=== PATIENT | female | born 1950 | race Caucasian/White ===

== ENCOUNTER 2020-12-06 10:44 | Emergency (ER) | payer MEDICARE, BC, SELFPAY ==
[2020-12-06 10:09] VITALS: BP 161/66; PULSE 74; RESP 15; TEMP 36.8; O2SAT 96; BMI 33.9
--- NOTE | 2020-12-06 10:51 | DI.CT.S_ITS ---
PROCEDURE: CT KIDNEY URETER BLADDER (KUB) INDICATIONS: left flank pain TECHNIQUE: Noncontrast 5 mm thick sections acquired from the diaphragms to the symphysis. 5 mm thick coronal and sagittal reformats were then performed. For radiation dose reduction, the following was used: automated exposure control, adjustment of mA and/or kV according to patient size. COMPARISON: None. FINDINGS: Image quality: Excellent. Lung bases: Lung bases are clear. Heart size is normal. Urinary system: Both kidneys are normal in size. No kidney stones. There is minimal right and mild left perinephric fat stranding. No right hydronephrosis. Mild left hydronephrosis. Small amount of fluid within the left anterior para renal space. Both ureters appear non-dilated throughout their expected courses. Bladder wall thickness is normal. 2 mm calculus within the left posterior urinary bladder. Other solid organs: Liver is normal in size. Gallbladder is surgically absent . Pancreas is normal in contours. Spleen is normal in size. No adrenal nodules. Peritoneum and bowel: Small hiatal hernia. Unenhanced bowel loops demonstrate normal wall thickness and caliber. No free fluid or air. Normal appendix. Nodes and vessels: No retroperitoneal or mesenteric adenopathy by size criteria. Aorta and inferior vena cava are normal in caliber. Abdominal wall: There is an infraumbilical hernia containing a loop of small bowel as well as mesenteric fat, measuring roughly 75 mm. There is mild fat stranding within this hernia. Rectus muscle diastasis. Pelvis: No free pelvic fluid. No inguinal hernias or adenopathy. Bones: No suspicious bony lesions. No vertebral body compression fractures. IMPRESSION: 1. 2 mm urinary bladder calculus, which appears to of recently passed from the left renal collecting system. No nephrolithiasis. Mild residual left hydronephrosis. 2. Bowel and fat containing anterior pelvic wall hernia which demonstrates fat stranding, which may indicate incarceration. Surgical consultation recommended. 3. Normal appendix. 4. Small hiatal hernia. Dictated by: Estela Williamson M.D. on 12/06/2020 at 12:08 Approved by: Estela Williamson M.D. on 12/06/2020 at 12:11
--- NOTE | 2020-12-06 11:11 | ED.ABDPAIN ---
HPI - Abdominal Pain General Chief Complaint: Urogenital-Female Stated Complaint: Left flank pain Time Seen by Provider: 12/06/20 10:51 Source: patient Mode of arrival: EMS Limitations: no limitations History of Present Illness HPI narrative: Patient is a 70-year-old female who presents with left flank pain radiating around to her abdomen which started last evening. Pain is quite intense at times. [place] of Toradol which helped and allowed her to get some sleep however pain increased today and required air transport to the ER. She received more Toradol but no and Zofran. She felt nauseous at times but has not vomited. Has no prior history of kidney stones. She denies any fever or chills. MD complaint: flank pain Onset (ago): hour(s) Pain Consistency: constant and intermittent (Intensifies) Location: L flank Severity: moderate Quality: sharp Radiation: LLQ Related Data Allergies Allergy/AdvReac Type Severity Reaction Status Date / Time amoxicillin Allergy Verified 12/06/20 10:58 ciprofloxacin [From Cipro] Allergy Verified 12/06/20 10:58 clindamycin Allergy Verified 12/06/20 10:58 metronidazole [From Flagyl] Allergy Verified 12/06/20 10:58 Review of Systems Review of Systems Narrative: GENERAL: Denies chills, fatigue, malaise, fever, sweats, travel HEENT: Denies sinus pain, ear pain, sore throat, difficulty swallowing, neck pain RESPIRATORY: Denies dyspnea, cough, wheezing, hemoptysis, sputum. CARDIOVASCULAR: Denies chest pain, palpitations, orthopnea, edema GASTROINTESTINAL: Denies nausea, vomiting, abdominal pain, diarrhea, constipation, melena. : See HPI MUSCULOSKELETAL: Denies weakness, joint pain, or bony pain SKIN: No rash, no erythema, no pruritus NEUROLOGIC: Denies weakness, dizziness, headache, numbness, change in speech, confusion PSYCHIATRIC: No concerning psychosocial issues. 12 point review of systems is negative except for those stated above and HPI Patient History Social History Smoking Status: Unknown if ever smoked Smoking Status: Unknown if ever smoked alcohol intake frequency: holidays/special occasions only Substance Use Type: does not use Exam Initial Vital Signs Initial Vital Signs: Vital Signs Temperature 98.2 F 12/06/20 10:09 Pulse Rate 74 12/06/20 10:09 Respiratory Rate 15 12/06/20 10:09 Blood Pressure 161/66 H 12/06/20 10:09 Pulse Oximetry 96 12/06/20 10:09 GENERAL: Well-appearing, well-nourished and in no acute distress. HEENT: Head atraumatic,EOMI, pupils reactive, face symmetric, moist mucous membranes CARDIOVASCULAR: Regular rate and rhythm without murmurs, rubs or gallops. RESPIRATORY: Breath sounds equal bilaterally, no wheezes rales or rhonchi. ABDOMEN: Soft, nontender. Normoactive bowel sounds all 4 quadrants. No guarding or rebound. : Mild left CVA tenderness EXTREMITIES: Normal range of motion, no clubbing or edema. Neurovascularly intact NEUROLOGICAL: Alert and oriented x4.Normal gait and speech. Cranial nerves II through XII grossly intact. SKIN: Warm, dry, no laceration, no petechiae, no rashes or lesions. Course Orders Ordered: ED Orders 12/06/20 10:51 CT kidney ureter bladder (KUB) Stat 12/06/20 11:10 Complete Blood Count AUTO DIFF Stat Comprehensive Metabolic Panel Stat Lipase Stat 12/06/20 13:08 Urine Microscopic Stat Discontinued Medications Sodium Chloride (Normal Saline 0.9%) 1,000 mls @ 1,000 mls/hr IV CONT LUANNE Last Infusion: 12/06/20 13:32 Dose: 0 mls/hr Documented by: [email or web address] Admin: 12/06/20 11:18 Dose: 1,000 mls/hr Documented by: [email or web address] Vital Signs Vital signs: Vital Signs - 8 hr 12/06/20 11:23 12/06/20 11:30 12/06/20 12:01 Pulse Rate 72 65 73 Respiratory Rate 14 32 H Blood Pressure 143/64 H 145/65 H Pulse Oximetry 95 97 90 L 12/06/20 12:23 12/06/20 12:30 Pulse Rate 74 71 Respiratory Rate 55 H 70 H Blood Pressure 114/56 L 116/55 L Pulse Oximetry 94 91 MDM - Abdominal Pain Lab Data Attestation: I reviewed the patient's lab results. Result diagrams: 12/06/20 11:10 12/06/20 11:10 Labs: Lab Results 12/06/20 12/06/2021 Range/Units 11:10 11:10 13:08 WBC 7.7 (4.5-11.0) X10^3/uL RBC 3.92 L (4.0-5.2) X10^6/uL Hgb 12.6 (12.0-16.0) g/dL Hct 37.9 (36-46) % MCV 96.5 (80-100) fL MCH 32.1 (26-34) PG MCHC 33.3 (30-36) % RDW 13.5 (11.6-14.8) % Plt Count 244 (150-400) X10^3/uL Neut % (Auto) 82.6 H (50-75) % Lymph % (Auto) 10.7 L (25-40) % [place] % (Auto) 6.5 (3-14) % Eos % (Auto) 0.0 L (2-4) % Baso % (Auto) 0.2 (0-2) % Neut # (Auto) 6300 (9286-2726) /uL Lymph # (Auto) 800 L (0952-7597) /uL [place] # (Auto) 500 (0-900) /uL Eos # (Auto) 0 (0-450) /uL Baso # (Auto) 0 (0-100) /uL Sodium 140 (137-145) mmol/L Potassium 4.3 (3.4-5.1) mmol/L Chloride 105 (98-107) mmol/L Carbon Dioxide 28 (22-32) mmol/L BUN 26 H (7-17) mg/dL Creatinine 0.83 (0.52-1.04) mg/dL Estimated GFR > 60.0 (>60) mL/min BUN/Creatinine Ratio 31.3 H (6-22) Glucose 107 (80-110) mg/dL Calcium 9.2 (8.4-10.2) mg/dL Total Bilirubin 0.4 (0.2-1.3) mg/dL AST 26 (14-36) IU/L ALT 15 (<35) IU/L Alkaline Phosphatase 74 (38-126) U/L Total Protein 7.3 (6.3-8.2) g/dL Albumin 4.1 (3.5-5.0) g/dL Globulin 3.2 (1.7-4.1) g/dL Albumin/Globulin Ratio 1.3 (1.0-2.8) Lipase 29 (23-300) U/L Urine RBC 5-10/hpf H (0-5/HPF) Urine WBC 0-1/hpf (0-5/HPF) Ur Squamous Epith Cells 0-1 /hpf (0-5/HPF) Urine Bacteria Few (2-10) H (None) Ur Culture Indicated? Cult not indicated Point of care testing: Urine Dip Bedside Urine Glucose Negative Bedside Urine Bilirubin - Negative Bedside Urine Ketone - Negative Urine Specific Paradox 1.015 Bedside Urine Occult Blood +++ Bedside Urine pH 6 Bedside Urine Protein - Negative Bedside Urine Urobilinogen - Negative Bedside Urine Nitrite - Negative Bedside Urine Leukocytes - Negative Esterase Imaging Data CT scan - abdomen/pelvis: Radiologist's Impression: PROCEDURE: CT KIDNEY URETER BLADDER (KUB) INDICATIONS: left flank pain TECHNIQUE: Noncontrast 5 mm thick sections acquired from the diaphragms to the symphysis. 5 mm thick coronal and sagittal reformats were then performed. For radiation dose reduction, the following was used: automated exposure control, adjustment of mA and/or kV according to patient size. COMPARISON: None. FINDINGS: Image quality: Excellent. Lung bases: Lung bases are clear. Heart size is normal. Urinary system: Both kidneys are normal in size. No kidney stones. There is minimal right and mild left perinephric fat stranding. No right hydronephrosis. Mild left hydronephrosis. Small amount of fluid within the left anterior para renal space. Both ureters appear non-dilated throughout their expected courses. Bladder wall thickness is normal. 2 mm calculus within the left posterior urinary bladder. Other solid organs: Liver is normal in size. Gallbladder is surgically absent . Pancreas is normal in contours. Spleen is normal in size. No adrenal nodules. Peritoneum and bowel: Small hiatal hernia. Unenhanced bowel loops demonstrate normal wall thickness and caliber. No free fluid or air. Normal appendix. Nodes and vessels: No retroperitoneal or mesenteric adenopathy by size criteria. Aorta and inferior vena cava are normal in caliber. Abdominal wall: There is an infraumbilical hernia containing a loop of small bowel as well as mesenteric fat, measuring roughly 75 mm. There is mild fat stranding within this hernia. Rectus muscle diastasis. Pelvis: No free pelvic fluid. No inguinal hernias or adenopathy. Bones: No suspicious bony lesions. No vertebral body compression fractures. IMPRESSION: 1. 2 mm urinary bladder calculus, which appears to of recently passed from the left renal collecting system. No nephrolithiasis. Mild residual left hydronephrosis. 2. Bowel and fat containing anterior pelvic wall hernia which demonstrates fat stranding, which may indicate incarceration. Surgical consultation recommended. 3. Normal appendix. 4. Small hiatal hernia. Dictated by: Estela Williamson M.D. on 12/06/2020 at 12:08 MDM Narrative Medical decision making narrative: The patient is overall feeling better. She is found have a kidney stone in the bladder 2 mm. She has not yet passed it. No sign of infection. At this time pain is controlled. Recommend outpatient follow-up. Discharge Plan Departure Patient Disposition: Home Clinical Impression: Kidney stones Instructions: DI for Kidney Stones Activity Restrictions/Additional Instructions: *You have been diagnosed with kidney stone *What to do: Your kidney stone is actually in her bladder and I anticipate that he will pass it any time now. You can strain your urine to try and capture the kidney stone and bring it in for analysis. Expect to be slightly sore over the next few days *Continue to take medications as directed Ibuprofen 600 mg every 6 hours if needed for [id number] pain *Follow up with your primary care provider in 2-3 days *Return to ER if you should have increasing pain, fever, [or] any new, worsening or concerning symptoms Referrals: [facility] [Outside]
[2020-12-06 11:18] LABS: Add Manual Diff / Slide Review NO; Basophils Absolute Auto 0 /uL (0-100); Basophils Percent Auto 0.2 % (0-2); Eosinophils Absolute Auto 0 /uL (0-450); Hematocrit 37.9 % (36-46); Hemoglobin 12.6 g/dL (12.0-16.0); Lymphocytes Absolute Auto 800 /uL (1100-4500); Lymphocytes Percent Auto 10.7 % (25-40); Mean Corpuscular HGB Conc 33.3 % (30-36); Mean Corpuscular Hemoglobin 32.1 PG (26-34); Mean Corpuscular Volume 96.5 fL (80-100); Monocytes Absolute Auto 500 /uL (0-900); Monocytes Percent Auto 6.5 % (3-14); Neutrophils Absolute Auto 6300 /uL (1500-7000); Neutrophils Percent Auto 82.6 % (50-75); Platelet Count 244 X10^3/uL (150-400); Red Blood Cell Count 3.92 X10^6/uL (4.0-5.2); Red Cell Distribution Width 13.5 % (11.6-14.8); White Blood Cell Count 7.7 X10^3/uL (4.5-11.0)
[2020-12-06] MEDS: SODIUM CHLORIDE 0.9% 1,000 ML 1000 ML IV (11:18)
[2020-12-06 11:23] VITALS: BP 143/64; PULSE 72; O2SAT 95
[2020-12-06 11:28] LABS: Alanine Aminotransferase 15 IU/L (<35); Albumin 4.1 g/dL (3.5-5.0); Albumin Globulin Ratio 1.3 (1.0-2.8); Alkaline Phosphatase 74 U/L (38-126); Aspartate Aminotransferase 26 IU/L (14-36); BUN Creatinine Ratio 31.3 (6-22); Bilirubin Total 0.4 mg/dL (0.2-1.3); Blood Urea Nitrogen 26 mg/dL (7-17); Calcium 9.2 mg/dL (8.4-10.2); Carbon Dioxide 28 mmol/L (22-32); Chloride 105 mmol/L (98-107); Estimated Glomerular Filt Rate > 60.0 mL/min (>60); Globulin 3.2 g/dL (1.7-4.1); Glucose 107 mg/dL (80-110); HEMOLYSIS < 15 (0-50); Lipase 29 U/L (23-300); Potassium 4.3 mmol/L (3.4-5.1); Sodium 140 mmol/L (137-145); Total Protein 7.3 g/dL (6.3-8.2)
[2020-12-06 11:30] VITALS: BP 145/65; PULSE 65; RESP 14; O2SAT 97
[2020-12-06 12:01] VITALS: PULSE 73; RESP 32; O2SAT 90
[2020-12-06 12:23] VITALS: BP 114/56; PULSE 74; RESP 55; O2SAT 94
[2020-12-06 12:30] VITALS: BP 116/55; PULSE 71; RESP 70; O2SAT 91
[2020-12-06 13:30] LABS: Bacteria Urine Few (2-10); Culture Indicated Urine Cult Not Indicated; RBC Urine 5-10/HPF (0-5/HPF); Squamous Epithelial Cell Urine 0-1 /HPF (0-5/HPF); WBC Urine 0-1/HPF (0-5/HPF)
== END 2020-12-06 13:33 | disposition home or self-care (01) ==
PROVIDERS: Emergency Provider Emergency Medicine
DX: N20.0 Calculus of kidney (principal)
CPT/HCPCS: 36415; 74176; 80053; 81003; 81015; 83690; 85025; 96360; 96361; 99284